=== PATIENT | male | born 1995 | race African-American/Black ===

== ENCOUNTER 2016-09-19 11:54 | Emergency (ER) | payer MEDICAID ==
[~2016-09-19] VITALS: Ht 167.6 cm; Wt 61.4 kg
[2016-09-19 13:25] VITALS: BP 115/75
== END 2016-09-19 14:04 | disposition home or self-care (01) ==
LOC: EMS 11:56
DX: Z76.0 Encounter for issue of repeat prescription (principal); J45.909 Unspecified asthma, uncomplicated
CPT/HCPCS: 99281; 99283